=== PATIENT | male | born 1980 | race Caucasian/White ===

== ENCOUNTER 2017-09-02 18:07 | Emergency (ER) | payer OTHER ==
[~2017-09-02] VITALS: Ht 190.5 cm; Wt 118.0 kg
[~2017-09-02 18:07] MED LIST: CYCL-36 PO; MELO15TA2 PO; Z.0.NO CURRENT MEDS
[2017-09-02 18:08] VITALS: BP 143/92; PULSE 89; RESP 18; TEMP 98.8; O2SAT 97
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
[2017-09-02] MEDS ORDERED: ROBA500T PO (18:35)
[2017-09-02] MEDS ORDERED: IBUP800T23 PO (18:35)
[2017-09-02] MEDS ORDERED: METHOCARBAMOL 500 MG TAB PO ONE (18:45)
[2017-09-02] MEDS ORDERED: IBUPROFEN 800 MG TAB PO ONE (18:45)
== END 2017-09-02 18:45 | disposition home or self-care (01) ==
LOC: NEPK 18:07
DX: S39.012A Strain of muscle, fascia and tendon of lower back, initial encounter (principal); F17.200 Nicotine dependence, unspecified, uncomplicated; X50.1XXA Overexertion from prolonged static or awkward postures, initial encounter; W10.9XXA Fall (on) (from) unspecified stairs and steps, initial encounter; Z79.899 Other long term (current) drug therapy
CPT/HCPCS: 99283